=== PATIENT | female | born 1965 | race Caucasian/White ===

== ENCOUNTER 2018-05-22 19:41 | Emergency (ER) | payer BC, OTHER ==
[~2018-05-22] VITALS: Ht 157.5 cm; Wt 80.3 kg
[~2018-05-22 19:41] MED LIST: ALBU1AER9 INH; CHOL1DRO5 PO; EFFSR75 PO; MTR/600 PO; ONDA4TAB7 SL
[2018-05-22 19:48] VITALS: TEMP 36.6; Ht 157.5 cm; Wt 80.3 kg
[2018-05-22] MEDS ORDERED: FENTANYL CITRATE INJ 50 MCG/1 ML 2 ML VIAL IV STA (20:10)
[2018-05-22] MEDS ORDERED: ONDANSETRON INJ 2 MG/ML 2 ML VIAL IV STA (20:10)
--- NOTE | 2018-05-22 20:11 | EMERGENCY ROOM VISIT NOTE ---
History Report prepared by Emilia: Giovanni Ponce Under the Supervision of: Dr. Karon Anderson D.O. First contact with patient: 19:52 Chief Complaint: ABDOMINAL PAIN Stated Complaint: ABDOMINAL PAIN History of Present Illness The patient is a 53 year old female who presents to the Emergency Room with complaints of two episodes of abdominal pain beginning yesterday. The patient states that she had an episode of abdominal pain yesterday that lasted for a few hours. She notes that the pain then eased off. She reports that she also had diarrhea last night that started after the onset of her pain. The patient states that she developed pain again at around 1430 today. She notes that she developed diarrhea today again after her abdominal pain started. She reports that she has had diarrhea after being constipated and having a bowel movement. She also complains of back pain, chills, nausea, and foul smelling gas. She rates her pain as an 8.5/10. The patient states that her abdominal pain wraps around her abdomen like a band to her back. She denies any black/bloody stool, fever, change in odor/color of her urine, bloating/distention, as well as change in activity and recent travel. She notes that she has a history of IBS, diverticulosis, diverticulitis, as well as a partial hysterectomy, Marlena fundoplication, shoulder surgery, and adhesion removal after her hysterectomy. Source of History: patient Onset: yesterday Position: abdomen Symptom Intensity: 8.5/10 Timing: other (two episodes) Associated Symptoms: + chills, + nausea, + back pain, + diarrhea, No fevers Note: The patient also complains of constipation, an increased frequency of urination , an increased urgency of urination, and foul smelling gas. She also denies any black/bloody stool, changes in the odor/color of her urine, and bloating/ distention. Review of Systems See HPI for pertinent positives & negatives. A total of 10 systems reviewed and were otherwise negative. Past Medical & Surgical Medical Problems: (1) Asthma (2) Depression (3) Diverticulitis (4) Diverticulosis (5) IBS (irritable bowel syndrome) (6) s/p colonoscopy (7) s/p exploratory lap (8) s/p Umberto fundoplication (9) s/p right shoulder surgery (10) s/p supracervical hysterectomy + unilateral oophorectomy Surgical Problems: (1) History of partial hysterectomy Family History Cancer MOTHER Diabetes mellitus FATHER MOTHER Gallbladder disease SISTER Heart disease GRANDFATHER GRANDMOTHER Hypertension FATHER MOTHER Kidney disease SISTER Kidney stones SISTER Lung disease UNCLE Seizures UNCLE Social History Smoking Status: Former Smoker Alcohol Use: none Drug Use: none Marital Status: Housing Status: lives with family Occupation Status: employed Current/Historical Medications Scheduled Dicyclomine Hcl (Bentyl), 2 CAP PO TID Trazodone Hcl (Desyrel), 50 MG PO HS Venlafaxine Hcl (Effexor Extended Rel), 150 MG PO DAILY Scheduled PRN Albuterol Sulfate (Proair Respiclick), 2 PUFFS INH QID PRN for SOB/Wheezing Hydrocodone/Acetaminophen 5MG/325MG (Hardy 5MG/325MG), 1 TABLET PO Q8 PRN for Pain Ibuprofen (Advil), 400-600 MG PO Q6H PRN for Pain or Fever Allergies Coded Allergies: Oxycodone (Verified Allergy, Intermediate, Constipated, 05/22/18) Physical Exam Vital Signs Date Time Temp Pulse Resp B/P (MAP) Pulse Ox O2 Delivery O2 Flow Rate FiO2 05/23/18 00:13 55 18 122/74 96 05/22/18 22:57 65 18 126/65 95 Room Air 05/22/18 22:06 75 18 121/76 99 Room Air 05/22/18 20:10 64 05/22/18 19:48 36.6 60 18 134/84 99 Room Air Physical Exam GENERAL: alert, uncomfortable appearing, well nourished, no distress, non-toxic EYE EXAM: normal conjunctiva, PERRL and EOM's grossly intact OROPHARYNX: no exudate, no erythema, lips, buccal mucosa, and tongue normal and mucous membranes are moist NECK: supple, no nuchal rigidity, no adenopathy, non-tender LUNGS: Clear to auscultation. Normal chest wall mechanics, no w/r/r HEART: no murmurs, S1 normal and S2 normal ABDOMEN: abdomen soft, non-tender, normo-active bowel sounds, no masses, no rebound or guarding. Epigastric and bilateral upper quadrant tenderness. BACK: Back is symmetrical on inspection and there is no deformity, no midline tenderness, no CVA tenderness. SKIN: no rashes and no bruising UPPER EXTREMITIES: upper extremities are grossly normal. Full range of motion, normal pulses. LOWER EXTREMITIES: No pitting edema. Full range of motion, normal pulses. NEURO EXAM: Normal sensorium, cranial nerves II-XII grossly intact, normal speech, no gross weakness of arms, no gross weakness of legs. Medical Decision & Procedures ER Provider Diagnostic Interpretation: Radiology results have been interpreted by the radiologist and reviewed by me. ABDOMEN 2VIEW W/PA CHEST RTN FINDINGS: Cardiomediastinal and hilar silhouettes are within normal limits. There is no pneumothorax, pleural effusion, focal airspace consolidation or overt pulmonary edema. Degenerative changes of the shoulders and spine. Healed remote fracture of the posterolateral right sixth rib. Bowel gas pattern is nonobstructive. No pneumatosis or pneumoperitoneum. No urolith. Convex right curvature of the mid lumbar spine. Surgical suture material is seen within the pelvis. Pelvic phleboliths also noted. IMPRESSION: Unremarkable acute abdominal series radiographs. The above report was generated using voice recognition software. It may contain grammatical, syntax or spelling errors. Electronically signed by: Jamar Hartmann M.D. 05/22/2018 9:42 PM Dictated Date/Time: 05/22/2018 9:39 PM GALLBLADDER-ABD LIMITED FINDINGS: The imaged pancreas appears unremarkable. The liver is also within normal limits without focal mass or intrahepatic biliary ductal dilation. The gallbladder is within normal limits without shadowing cholelithiasis, gallbladder wall thickening or pericholecystic fluid collections. Sonographic Cent[place] sign reported as negative. Common bile duct is normal, 5 mm. The imaged right kidney is unremarkable without hydronephrosis. IMPRESSION: Unremarkable right upper quadrant abdominal ultrasound. The above report was generated using voice recognition software. It may contain grammatical, syntax or spelling errors. Electronically signed by: Jamar Hartmann M.D. 05/22/2018 10:05 PM Dictated Date/Time: 05/22/2018 10:04 PM Laboratory Results 05/22/18 20:00 Red Blood Count 4.96, Mean Corpuscular Volume 89.1, Mean Corpuscular Hemoglobin 30.8, Mean Corpuscular Hemoglobin Concent 34.6, Mean Platelet Volume 9.8, Neutrophils (%) (Auto) 58.4, Lymphocytes (%) (Auto) 35.3, Monocytes (%) (Auto) 4.1, Eosinophils (%) (Auto) 1.9, Basophils (%) (Auto) 0.2, Neutrophils # (Auto) 5.31, Lymphocytes # (Auto) 3.21, Monocytes # (Auto) 0.37, Eosinophils # (Auto) 0.17, Basophils # (Auto) 0.02 05/22/18 20:00 Test 05/22/18 20:00 05/22/18 22:58 White Blood Count 9.09 K/uL (4.8-10.8) Red Blood Count 4.96 M/uL (4.2-5.4) Hemoglobin 15.3 g/dL (12.0-16.0) Hematocrit 44.2 % (37-47) Mean Corpuscular Volume 89.1 fL (80-100) Mean Corpuscular Hemoglobin 30.8 pg (25-34) Mean Corpuscular Hemoglobin Concent 34.6 g/dl (32-36) Platelet Count 222 K/uL (130-400) Mean Platelet Volume 9.8 fL (7.4-10.4) Neutrophils (%) (Auto) 58.4 % Lymphocytes (%) (Auto) 35.3 % Monocytes (%) (Auto) 4.1 % Eosinophils (%) (Auto) 1.9 % Basophils (%) (Auto) 0.2 % Neutrophils # (Auto) 5.31 K/uL (1.4-6.5) Lymphocytes # (Auto) 3.21 K/uL (1.2-3.4) Monocytes # (Auto) 0.37 K/uL (0.11-0.59) Eosinophils # (Auto) 0.17 K/uL (0-0.5) Basophils # (Auto) 0.02 K/uL (0-0.2) RDW Standard Deviation 43.9 fL (36.4-46.3) RDW Coefficient of Variation 13.5 % (11.5-14.5) Immature Granulocyte % (Auto) 0.1 % Immature Granulocyte # (Auto) 0.01 K/uL (0.00-0.02) Prothrombin Time 10.7 SECONDS (9.0-12.0) Prothromb Time International Ratio 1.0 (0.9-1.1) D-Dimer < 190 ug/L FEU (0-500) Anion Gap 6.0 mmol/L (3-11) Est Creatinine Clear Calc Drug Dose 76.0 ml/min Estimated GFR () 91.3 Estimated GFR (Non- 78.8 BUN/Creatinine Ratio 14.6 (10-20) Calcium Level 9.1 mg/dl (8.5-10.1) Total Bilirubin 0.3 mg/dl (0.2-1) Aspartate Amino Transf (AST/SGOT) 19 U/L (15-37) Alanine Aminotransferase (ALT/SGPT) 21 U/L (12-78) Alkaline Phosphatase 72 U/L (45-117) Total Protein 8.5 gm/dl (6.4-8.2) Albumin 4.6 gm/dl (3.4-5.0) Globulin 3.9 gm/dl (2.5-4.0) Albumin/Globulin Ratio 1.2 (0.9-2) Lipase 209 U/L (73-393) Troponin I < 0.015 ng/ml (0-0.045) Laboratory results per my review. Medications Administered Medications (Trade) Dose Ordered Sig/Luan Route Start Time Stop Time Status Last Admin Dose Admin Fentanyl Citrate (Fentanyl Inj) 50 mcg NOW STAT IV 05/22/18 20:10 05/22/18 20:12 DC 05/22/18 20:16 50 MCG Ondansetron HCl (Zofran Inj) 4 mg NOW STAT IV 05/22/18 20:10 05/22/18 20:12 DC 05/22/18 20:16 4 MG Famotidine (Pepcid Tab) 20 mg NOW ONCE PO 05/22/18 22:30 05/22/18 22:31 DC 05/22/18 22:24 20 MG Al Hydroxide/Mg Hydroxide (Maalox Susp) 15 ml NOW STAT PO 05/22/18 22:16 05/22/18 22:17 DC 05/22/18 22:24 15 ML Ketorolac Tromethamine (Toradol Inj) 30 mg NOW STAT IV 05/22/18 23:05 05/22/18 23:06 DC 05/22/18 23:18 30 MG Dicyclomine HCl (Bentyl Tab) 20 mg NOW STAT PO 05/22/18 23:05 05/22/18 23:06 DC 05/22/18 23:18 20 MG Ondansetron HCl (ZOFRAN ODT 4MG Home Pack) 1 homepack UD ONCE PO 05/22/18 23:30 05/22/18 23:31 DC 05/22/18 23:36 1 HOMEPACK Dicyclomine HCl (Dicyclomine HCl 10MG Home Pack) 1 ea UD ONCE PO 05/22/18 23:30 05/22/18 23:31 DC 05/22/18 23:36 1 EA Acetaminophen/ Hydrocodone Bitart (Hardy 5/325mg Home Pack) 1 homepack UD ONCE PO 05/22/18 23:30 05/22/18 23:31 DC 05/22/18 23:36 1 HOMEPACK ECG Per My Interpretation Indication: abdominal pain Rate (beats per minute): 56 Rhythm: sinus bradycardia Findings: no acute ischemic change, no ectopy, other (Normal axis, normal intervals) ED Course 2000: The patient was evaluated in room B2. A complete history and physical exam was performed. 2010: Zofran Inj 4mg IV, Fentanyl Inj 50mcg IV 2213: I reevaluated and updated the patient. She is still having pain. 2216: Maalox Susp 15ml PO 2315: Patient made aware of all results here and discuss follow-up after and also possibly with GI. Medical Decision Differential diagnosis: Etiologies such as appendicitis, diverticulitis, PUD, biliary pathology, UTI, pancreatitis, obstruction, mesenteric ischemia, aortic pathology, infections, inflammatory bowel disease, renal colic, as well as others were entertained. Discussed patient unclear etiology of her abdominal pain. Discussed close follow-up with the family doctor to recheck her symptoms as a precaution. Patient's labs and imaging here reassuring. I do not suspect cardiac etiology. I do not suspect vascular etiology, no evidence of pulmonary etiology. I do not suspect occult infectious process. Discussed symptoms possibly related to colitis given wall thickening noted on CT and looser stools today. I do not suspect occult GI bleed. Discussed possible viral illness and gastritis. I do not suspect occult process. Patient improved here with medications. Patient hemodynamically stable throughout. Patient verbalized understanding of all results and was in agreement with plan. Medication Reconcilliation Current Medication List: was personally reviewed by me Blood Pressure Screening Patient's blood pressure: Normal blood pressure Blood pressure disposition: Did not require urgent referral Impression Primary Impression: Abdominal pain Scribe Attestation The scribe's documentation has been prepared under my direction and personally reviewed by me in its entirety. I confirm that the note above accurately reflects all work, treatment, procedures, and medical decision making performed by me. Departure Information Dispostion Home / Self-Care Prescriptions Hydrocodone/Acetaminophen 5MG/325MG (Hardy 5MG/325MG) Tab 1 TABLET PO Q8 Y for Pain, #10 TAB Prov: Karon Anderson, DO 05/22/18 Dicyclomine Hcl (BENTYL) 10 Mg Cap 2 CAP PO TID, #30 CAP 1 Refill Prov: Karon Anderson, DO 05/22/18 Referrals No Doctor, Assigned (PCP) Patient Instructions My [facility] Additional Instructions Please call follow-up with your family doctor. Please continue any usual medications as prescribed. Please drink clear liquids at frequent intervals to stay well-hydrated and eat a light and bland diet. Please avoid any acidic foods in the short-term including alcohol, coffee, soda, tomato based products, and citrus fruits. If you have any worsening pain, develop vomiting, black or bloody stools, fevers or chills, chest pain, trouble breathing, dizziness, you have any other new concerns, please return the emergency room. Problem Qualifiers Primary Impression: Abdominal pain Abdominal location: upper abdomen, unspecified Qualified Codes: R10.10 - Upper abdominal pain, unspecified
[2018-05-22 20:21] LABS: BASO % 0.2 %; BASO ABS # 0.02 K/uL (0-0.2); EOS % 1.9 %; EOS ABS # 0.17 K/uL (0-0.5); HEMATOCRIT 44.2 % (37-47); HEMOGLOBIN 15.3 g/dL (12.0-16.0); IG# 0.01 K/uL (0.00-0.02); LYMPH % 35.3 %; LYMPH ABS # 3.21 K/uL (1.2-3.4); MEAN CELL VOLUME 89.1 fL (80-100); MEAN CORPUSCULAR HEMOGLOBIN 30.8 pg (25-34); MEAN CORPUSCULAR HGB CONC 34.6 g/dl (32-36); MEAN PLATELET VOLUME 9.8 fL (7.4-10.4); MONO % 4.1 %; MONO ABS # 0.37 K/uL (0.11-0.59); NEUT % 58.4 %; NEUT ABS # 5.31 K/uL (1.4-6.5); PLATELET COUNT 222 K/uL (130-400); RED CELL DISTRIBUTION WIDTH CV 13.5 % (11.5-14.5); RED CELL DISTRIBUTION WIDTH SD 43.9 fL (36.4-46.3); WHITE BLOOD COUNT 9.09 K/uL (4.8-10.8)
[2018-05-22 20:34] LABS: ALBUMIN 4.6 gm/dl (3.4-5.0); ALKALINE PHOSPHATASE 72 U/L (45-117); ALT/SGPT 21 U/L (12-78); AST/SGOT 19 U/L (15-37); BLOOD UREA NITROGEN 12 mg/dl (7-18); CALCIUM 9.1 mg/dl (8.5-10.1); CARBON DIOXIDE 29 mmol/L (21-32); CREATININE 0.85 mg/dl (0.60-1.20); GLUCOSE 89 mg/dl (70-99); LIPASE 209 U/L (73-393); POTASSIUM 3.8 mmol/L (3.5-5.1); SODIUM 137 mmol/L (136-145); TOTAL PROTEIN 8.5 gm/dl (6.4-8.2)
[2018-05-22] MEDS ORDERED: TRAZ1TAB48 PO (20:48)
[2018-05-22] MEDS ORDERED: IBUP-1277 PO (20:48)
[2018-05-22] MEDS ORDERED: ALBU18002 INH (20:48)
[2018-05-22] MEDS ORDERED: EFFSR150 PO (20:48)
--- NOTE | 2018-05-22 21:43 | DIAGNOSTIC IMAGING REPORT ---
ABDOMEN 2VIEW W/PA CHEST RTN HISTORY: 53 years-old Female abd pain, n/v acute generalized abdominal pain with nausea and vomiting COMPARISON: CT abdomen and pelvis 01/21/2015, acute abdominal series radiographs 02/03/2012 TECHNIQUE: PA view of the chest with erect and supine views of the abdomen FINDINGS: Cardiomediastinal and hilar silhouettes are within normal limits. There is no pneumothorax, pleural effusion, focal airspace consolidation or overt pulmonary edema. Degenerative changes of the shoulders and spine. Healed remote fracture of the posterolateral right sixth rib. Bowel gas pattern is nonobstructive. No pneumatosis or pneumoperitoneum. No urolith. Convex right curvature of the mid lumbar spine. Surgical suture material is seen within the pelvis. Pelvic phleboliths also noted. IMPRESSION: Unremarkable acute abdominal series radiographs. The above report was generated using voice recognition software. It may contain grammatical, syntax or spelling errors. Electronically signed by: Jamar Hartmann M.D. 05/22/2018 9:42 PM Dictated Date/Time: 05/22/2018 9:39 PM
--- NOTE | 2018-05-22 22:07 | DIAGNOSTIC IMAGING REPORT ---
GALLBLADDER-ABD LIMITED HISTORY: 53 years-old Female epigastric pain acute epigastric abdominal pain COMPARISON: Acute abdominal series radiographs of same day TECHNIQUE: Multiple real-time sonographic images of the abdominal right upper quadrant were obtained assessing grayscale appearance and color flow FINDINGS: The imaged pancreas appears unremarkable. The liver is also within normal limits without focal mass or intrahepatic biliary ductal dilation. The gallbladder is within normal limits without shadowing cholelithiasis, gallbladder wall thickening or pericholecystic fluid collections. Sonographic Cent[place] sign reported as negative. Common bile duct is normal, 5 mm. The imaged right kidney is unremarkable without hydronephrosis. IMPRESSION: Unremarkable right upper quadrant abdominal ultrasound. The above report was generated using voice recognition software. It may contain grammatical, syntax or spelling errors. Electronically signed by: Jamar Hartmann M.D. 05/22/2018 10:05 PM Dictated Date/Time: 05/22/2018 10:04 PM
[2018-05-22] MEDS ORDERED: ALUMINUM/MAGNESIUM SUSP 30 ML UDC PO STA (22:16)
[2018-05-22] MEDS ORDERED: OPTIRAY 320 IV PRN (22:30)
[2018-05-22] MEDS ORDERED: FAMOTIDINE 20 MG TAB PO ONE (22:30)
--- NOTE | 2018-05-22 23:02 | DIAGNOSTIC IMAGING REPORT ---
ABDOMEN AND PELVIS CT WITH IV CONTRAST CT DOSE: 500.24 mGy.cm HISTORY: Acute upper abdominal pain upper abd pain TECHNIQUE: Multiaxial CT images of the abdomen and pelvis were performed following the use of intravenous contrast. A dose lowering technique was utilized adhering to the principles of ALARA. COMPARISON STUDY: Right upper quadrant ultrasound 05/22/2018, CT abdomen and pelvis 01/21/2015. FINDINGS: Lung bases appear generally clear. No pneumatosis or pneumoperitoneum. Imaged inferior cardiac chambers are unremarkable. Mildly contracted gallbladder. The liver, spleen, pancreas and adrenal glands are unremarkable. 10 mm renal sinus cyst about the superior pole left kidney. No renal calculi or hydronephrosis. Ureters and bladder are unremarkable. Prior hysterectomy. No adnexal mass lesions. No aortic aneurysm. Unremarkable IVC. No pathologically enlarged lymph nodes identified. Small sliding-type hiatal hernia. No bowel obstruction. Multiple nondilated fluid-filled loops of small bowel are seen throughout the abdomen and pelvis. Wall thickening with partial distention involves the majority of the colon extending from the hepatic flexure through the rectum. No pericolonic inflammatory change. Appendix appears normal. No ascites or mesenteric inflammatory changes. Soft tissues are unremarkable. Mild facet arthrosis about the lower lumbar spine. Chronic bilateral pars defects at L5 with 3 mm anterolisthesis L5 on S1. Annular disc bulging is also seen at this level. IMPRESSION: 1. No acute intra-abdominal or intrapelvic abnormality identified. Normal appendix. 2. Mild wall thickening throughout the majority of the colon is likely secondary to partial distention with a mild colitis thought to be less likely. 3. Small sliding-type hiatal hernia. 4. Prior hysterectomy. Electronically signed by: Jamar Hartmann M.D. 05/22/2018 11:00 PM Dictated Date/Time: 05/22/2018 10:55 PM
[2018-05-22] MEDS ORDERED: KETOROLAC TROMETHAMINE 30 MG/ML VIAL IV STA (23:05)
[2018-05-22] MEDS ORDERED: DICYCLOMINE HCL 20 MG TAB PO STA (23:05)
[2018-05-22] MEDS ORDERED: HYDR-5688 PO (23:22)
[2018-05-22] MEDS ORDERED: DICY10CA55 PO (23:22)
[2018-05-22] MEDS ORDERED: NORCO 5/325MG HOME PACK PO ONE (23:30)
[2018-05-22] MEDS ORDERED: ONDANSETRON HOME PACK 4MG OD TAB PO ONE (23:30)
[2018-05-22] MEDS ORDERED: BENTYL HOME PACK 10 MG VIAL PO ONE (23:30)
[2018-05-23 00:13] VITALS: BP 122/74; PULSE 55; O2SAT 96
== END 2018-05-23 00:16 | disposition home or self-care (01) ==
LOC: C.EDB 19:42
DX: R10.10 Upper abdominal pain, unspecified (principal); R00.1 Bradycardia, unspecified; R19.7 Diarrhea, unspecified; M54.9 Dorsalgia, unspecified; K58.9 Irritable bowel syndrome, unspecified; F32.9 Major depressive disorder, single episode, unspecified; J45.909 Unspecified asthma, uncomplicated; Z79.899 Other long term (current) drug therapy; Z87.19 Personal history of other diseases of the digestive system; Z87.891 Personal history of nicotine dependence; Z88.5 Allergy status to narcotic agent